=== PATIENT | male | born 1965 | race Caucasian/White ===

== ENCOUNTER 2021-03-09 11:59 | Emergency (ER) | payer OTHER ==
[~2021-03-09 11:59] MED LIST: VITAMIN D400 UNI1 PO
[2021-03-09 12:56] LABS: HEMOGLOBIN 11.9 gm/dl (14.0-17.5); RED BLOOD COUNT 4.38 M/UL (4.20-5.50); WHITE BLOOD COUNT 6.7 K/UL (4.5-11.0)
[2021-03-09 13:22] LABS: BUN/CREATININE RATIO 19 (0-10)
== END 2021-03-09 17:35 | disposition home or self-care (01) ==
LOC: ER1 11:59
PROVIDERS: Emergency Medicine
DX: R55 Syncope and collapse (principal); E11.9 Type 2 diabetes mellitus without complications
CPT/HCPCS: 70450; 71045; 80053; 82550; 82553; 83874; 84484; 85025; 93005; 99285

== ENCOUNTER → 2021-05-09 | Emergency (ER) | payer OTHER ==
[2021-05-09 12:15] LABS: HEMOGLOBIN 12.1 gm/dl (14.0-17.5); RED BLOOD COUNT 4.4 M/UL (4.20-5.50); WHITE BLOOD COUNT 15.2 K/UL (4.5-11.0)
== END | disposition home or self-care (01) ==
LOC: ER1 11:05
PROVIDERS: Physician Assistant Medical
DX: J43.9 Emphysema, unspecified (principal); N18.9 Chronic kidney disease, unspecified; R09.02 Hypoxemia; J18.9 Pneumonia, unspecified organism; I12.9 Hypertensive chronic kidney disease with stage 1 through stage 4 chronic kidney disease, or unspecified chronic kidney disease; E11.22 Type 2 diabetes mellitus with diabetic chronic kidney disease; Z20.822 Contact with and (suspected) exposure to COVID-19
CPT/HCPCS: 36600; 71045; 80053; 82550; 82553; 82803; 83605; 83874; 83880; 84484; 85025; 85379; 85610; 87040; 93005; 96374; 96375; 99285; J0696; J2270; J2405; Q9965; U0002